=== PATIENT | female | born 1990 | race African-American/Black ===

== ENCOUNTER 2019-02-05 07:28 | Day surgery (SDC) | payer BC ==
[2019-02-01 16:40] LABS: RBC Red Blood Cell Count 4.23 M/uL (3.86-4.86)
[2019-02-01 16:41] LABS: Absolute Lymphocytes (CBC) 3.8 K/uL (0.7-4.9); Basophils % 0.6 % (0-1.3); Lymphocytes % 30.1 % (15.3-44.8); MPV 9.6 fL (7.6-11.3)
[2019-02-01 17:14] LABS: Potassium 3.8 mmol/L (3.5-5.1)
--- OUTSIDE RECORDS SUMMARY | 2019-02-05 07:31 | XMS REPORT ---
:1990 [facility] Address [address] [place] [address] Dr. Rdz [address] [place] [id number] Care Team Providers Name Role Phone Unavailable Unavailable Unavailable Problems This patient has no known problems. Allergies, Adverse Reactions, Alerts This patient has no known allergies or adverse reactions. Medications This patient has no known medications.
[2019-02-05] MEDS ORDERED: CIPROFLOXACIN 400mg IV 400 MG/200 ML BAG IV ONE (08:05)
[2019-02-05] MEDS ORDERED: Ringers Lactate 1,000 ML IV ONE (08:05)
[2019-02-05] MEDS ORDERED: propofoL 200 MG/20 ML VIAL IV ONE (08:23)
[2019-02-05] MEDS ORDERED: LIDOCAINE 1% MPF 5 ML VIAL ONE (08:23)
[2019-02-05] MEDS ORDERED: ROCURONIUM 50 MG/5 ML VIAL IV ONE (08:23)
[2019-02-05] MEDS ORDERED: FENTANYL CITR 100 MCG/2 ML ONE (08:23)
[2019-02-05] MEDS ORDERED: MIDAZOLAM HCL 2 MG/2 ML INJ ONE (08:23)
[2019-02-05] MEDS ORDERED: GLYCOPYRROLATE 0.2 MG/ML SYR ONE (08:52)
[2019-02-05] MEDS ORDERED: NEOSTIGMINE 1 MG/ML -10 ML VIAL ONE (08:52)
[2019-02-05] MEDS ORDERED: KETOROLAC 30 MG/ML INJ ONE (08:53)
[2019-02-05] MEDS ORDERED: ONDANSETRON 4 MG/2 ML VIAL ONE (08:53)
--- NOTE | 2019-02-05 09:00 | P.BOP ---
Preoperative diagnosis: incarcerated umbilical hernia Postoperative diagnosis: same Primary procedure: open repair of incarcerated umbilical hernia Automatic Hemmer: KARTHIK CORADO (BLANKMAKER) Estimated blood loss: <10cc Specimen: hernia sac Findings: incarcerated omemtum Anesthesia: General Complications: None Transferred to: Recovery Room Condition: Good
[2019-02-05] MEDS ORDERED: PROMETHAZINE INJ 25 MG/ML AMP ONE (09:15)
[2019-02-05] MEDS: HYDROMORPHONE HCL 1 MG/ML INJ ONE ×2 (09:18→09:30)
[2019-02-05] MEDS ORDERED: CODEINE 30MG/APAP 300MG TAB ONE (10:59)
[2019-02-05 12:48] VITALS: BP 96/68; TEMP 97; O2SAT 100
--- NOTE | 2019-02-05 19:42 | OP ---
Date of Procedure: 02/05/2019 Surgeon: Johnson Keys MD Appliance Repairer: Gracy Vaughn. Preoperative Diagnosis: Incarcerated umbilical hernia. Postoperative Diagnosis: Incarcerated umbilical hernia. Procedure: Open repair of incarcerated umbilical hernia. Estimated Blood Loss: Less than 10 mL. Finding: Incarcerated omentum. Indications: This is the case of a 28-year-old patient, who comes to us with above diagnosis. Fully explained the benefits, alternatives, and risks of repair of an incarcerated umbilical hernia which include, but not limited to infection, bleeding, damage to adjacent structures, anesthesia complicati on, recurrence, DC, and even . She also understands this may not relieve her symptoms. She carmine ht need more than one surgical intervention. She understood, signed a consent. Description Of Procedure: Patient was brought to the operating room, placed in supine position. Ane sthesia was done without complication. Abdominal area was prepped and draped in the usual sterile fa shion. Marcaine 0.5% was injected for local anesthetic. Before that, we did a time-out. An incisio n was made in a curvilinear fashion in the supraumbilical region. Incision was carried down to subcu taneous tissue. We noticed the incarcerated hernia. We opened the hernia sac, found incarcerated om entum. After removing some adhesions from the hernia sac, the omentum was reduced carefully back int o the abdominal cavity after fully inspecting and making sure there was no bleeding. Hernia sac was removed. The fascial edges were clean. Then, after that, I proceeded to close the area with a figur e-of-eight fashion multiple #1 Prolene until close. The area was irrigated. Subcutaneous tissue danisha sed with 3-0 chromic and skin with Steri-Strips. Sponge count and instrument count correct. Patient tolerated the procedure well. Patient was sent to recovery in stable condition. Disposition: Home. Activity: As tolerated. No heavy lifting. Followup: Follow up in my office in 1 week. Call for appointment [phone]. Keep area dry for 48 ho urs, then may shower. Keep Steri-Strips intact. Medication: Tylenol No. 3 q.4 hours p.r.n. pain, Bactrim DS p.o. b.i.d. TREVOR/KYLE Voice ID: [id number] Report ID: [id number]
== END 2019-02-05 11:40 | disposition home or self-care (01) ==
LOC: OR 07:28
PROVIDERS: ATTEND Surgery
PROC: 0WQF0ZZ Repair Abdominal Wall, Open Approach (ICD-10-PCS; principal; 2019-02-05 08:30)
DX: K42.0 Umbilical hernia with obstruction, without gangrene (principal); Z88.0 Allergy status to penicillin; Z82.49 Family history of ischemic heart disease and other diseases of the circulatory system
CPT/HCPCS: 85025; 80048; 36415; 81025; 88302; 49587; J2704; J2710; J2550; J2250; J3010; J1170; J7120; J2405; J0744